=== PATIENT | male | born 1935 | race Caucasian/White ===

== ENCOUNTER 2018-12-06 16:38 | Inpatient (IN) ==
[2018-12-06] MEDS ORDERED: IOPAMIDOL 100 ML BOTTLE IV ONE (19:30)
--- NOTE | 2018-12-06 20:18 | Internal Med History&Physical ---
Medical - H&P: HPI Patient information: Note initiated : 12/06/18 at 8:15 pm Service Date, if different from initiated Date: [] Patient: Servando Glover 83 y/o M admitted on 12/06/18 for Osteomyelitis. Chief Complaint: [] History of present illness: Mr. Glover is a 83 year old M Mr. Glover is a 83 year old M Who presents the ED after being evaluated by interventional pain specialist Dr. Lin today. Patient fell about 5 weeks ago when appeared to have an L1 fracture. He follows with Dr. Lin and was going to be vertebroplasty, however he recently had a Citrobacter UTI and was treated with Cipro. At that time his white blood cell count was 11 after follow-up urinalysis after treatment and resolution follow-up labs showed a white blood cell count of 13.6. Additionally in the clinic today he had worsening back pain and appeared more ill. ESR and CRP were done which showed an elevated ESR. Given these findings there is concern for alternative underlying infection other than the UTI which is since been treated and resolved. Thus admission was requested. Case was discussed with Dr. Dowd. Per history patient did have a cardiac arrest in July was sent to [facility]. He has a AICD and pacemaker placed at that time. He also had a aortic valve replaced which is felt to be the culprit because of his cardiac arrest, from severe aortic stenosis He has a history of A. fib hypertension. Patient did have some fever chills when he had the UTI but has not had any stents. Denies any chest pain occasionally gets shortness of breath since his cardiac arrest but nothing new. No respiratory issues or upper respiratory tract infections. No diarrhea. He states his back pain is been getting worse over the past week and states is a dull pain nonradiating and is located in the center of his lower back. Review of Systems: Pertinent positives as above. Denies headache/fever/chills/nausea/vomiting /chest or abdominal pain/cough/diarrhea . Many 10 point review of system reviewed negative Medical - H&P: PMH Medical history: Past medical history: Atrial fibrillation on warfarin and beta-[place] Cardiac arrest in July with initial rhythm of V. fib sent to [facility] from [facility] and agree he received an AICD pacemaker loss aortic valve replacement for severe aortic stenosis CKD II Chronic low back pain Hypertension/hyperlipidemia Past surgical to: Lumbar laminectomy AICD/PPM Right total knee arthroplasty Aortic valve replacement recently at [facility] in July Family: Mother CHF Father colon cancer Social history: Denies tobacco Drinks alcohol rarely Embolus with a cane Lives at home with family Medical - H&P: Meds Allergies Allergy/AdvReac Type Severity Reaction Status Date / Time lisinopril AdvReac Verified 12/06/18 19:09 Medical - H&P: Exam - Constitutional Exam: General: Alert, Awake, No acute Distress Eyes/N/T: EOMI, PEERL, DMM Head/Neck: neck supple, normocephalic atraumatic CV: RRR, 2/6 SM Pulm: Clear b/l, no wheezing/rhonchi/rales Abd: soft, nontender, +BS x4 Back: Mild tenderness to palpation lumbar spine no overlying signs of infection Ext: no clubbing/cyanosis/edema Neuro: Alert, no focal deficits, moves all extremities, CN 2-12 grossly intact, symmetrical strength b/l upper/lower, sensations intact b/l upper/lower Skin: warm/dry Medical - H&P: A/P - Narrative A/P Narrative: A: *Acute on chronic low back pain: Since falling 5 weeks ago with initial imaging appears to show L1 compression fracture -concern for osteo of spine given Leukocytosis/elevated ESR & CRP & worsening back pain vs other source of infection *Leukocytosis/elevated ESR & CRP: Unknown source of infection but concern for lumbar spine *Afib: On warfarin and metoprolol *h/o cardiac arrest (v. fib) in july: AICD/PPM and aortic valve replacement with aortic stenosis felt to be the culprit cause of cardiac arrest *HTN/HLD: * * P: -IVF's -CT lumbar w/contrast -Pending CBC with manual differential, PCT, chemistry panel -pain control/muscle relaxers -Nile javed -BC pending - - -pt/ot -ppx: warfarin per pharm
[2018-12-06] MEDS ORDERED: BISACODYL 10 MG SUPP.RECT PR PRN (20:44)
[2018-12-06] MEDS ORDERED: PROMETHAZINE 25 MG/ML VIAL IV PRN (20:44)
[2018-12-06] MEDS ORDERED: MAGNESIUM HYDROXIDE 30 ML ORAL.SUSP PO PRN (20:44)
[2018-12-06] MEDS ORDERED: IPRATROPIUM/ALBUTEROL 3 ML AMPUL.NEB NEB PRN (20:44)
[2018-12-06] MEDS ORDERED: ACETAMINOPHEN 325 MG TABLET PO PRN (20:44)
[2018-12-06] MEDS ORDERED: 0.9 % SODIUM CHLORIDE 1,000 ML IV SCH (20:44)
[2018-12-06] MEDS ORDERED: ONDANSETRON 4 MG/2 ML VIAL IV PRN (20:44)
[2018-12-06 22:03] LABS: Hematocrit 39.1 % (41.0-55.0); Hemoglobin 13.3 g/dL (13.5-16.5); Mean Cell Volume 88.6 fL (80.0-100.0); Mean Corpuscular HGB Conc 33.9 g/dL (31.0-36.0); Mean Platelet Volume 9.2 fL (7.4-10.4); Platelet Count 174 K/mcL (140-440); RBC 4.42 M/mcL (4.50-5.90); Red Cell Distribution Width 13.2 % (11.5-14.5); WBC 13.6 K/mcL (4.5-11.0)
[2018-12-06 22:13] LABS: INR 2.2 (0.9-1.1); Prothrombin Time 24.1 sec (11.9-14.5)
[2018-12-06 22:22] LABS: ALT/SGPT 48 U/l (0-40); AST/SGOT 59 U/l (0-37); Albumin 3.3 gm/dL (3.2-5.2); Albumin/Globulin Ratio 0.8 (1.0-2.3); Alkaline Phosphatase 207 U/L (39-117); Bilirubin,Direct 0.3 mg/dL (0.0-0.3); Bilirubin,Total 1.1 mg/dL (0.0-1.0); Blood Urea Nitrogen 36 mg/dl (8-23); Calcium 9.3 mg/dl (8.6-10.4); Carbon Dioxide 22 mmol/L (22-30); Chloride 100 mmol/L (96-108); Glomerular Filtration Rate 56; Glucose 110 mg/dL (70-105); Lactate Dehydrogenase 485 U/L (94-250); Magnesium 2.2 mg/dL (1.6-2.5); Potassium 4.4 mmol/L (3.3-5.1); Sodium 138 mmol/L (133-145); Triglycerides 96 mg/dl (<150); Uric Acid 5.9 mg/dL (2.5-8.0)
[2018-12-06 22:33] LABS: Eosinophils % (Manual) 1 % (0-7); Lymphocytes % 9 % (15-49); Monocytes % (Manual) 3 % (1-12); Platelet Estimate NORMAL (NORMAL); RBC Morphology NORMAL (NORMAL); Segmented Neutrophils % 87 % (38-78)
[2018-12-06] MEDS: DOCUSATE SODIUM 100 MG CAPSULE PO SCH (23:05)
[2018-12-06] MEDS: 0.9 % SODIUM CHLORIDE 10 ML SYRINGE IV SCH (23:05)
[2018-12-07] MEDS: 0.9 % SODIUM CHLORIDE 10 ML SYRINGE IV SCH ×3 (04:23→22:08)
[2018-12-07 05:49] LABS: Basophils # (Auto) 0 K/mcL (0.0-0.3); Basophils % (Auto) 0.3 % (0.0-2.0); Eosinophils # (Auto) 0.1 K/mcL (0.0-0.7); Eosinophils % (Auto) 0.5 % (0.0-7.0); Granulocytes % (Auto) 84.6 % (38.0-78.0); Hematocrit 38.1 % (41.0-55.0); Hemoglobin 12.5 g/dL (13.5-16.5); Lymphocytes # (Auto) 0.8 K/mcL (1.5-4.8); Lymphocytes % (Auto) 7.2 % (15.5-49.0); Mean Cell Volume 90.8 fL (80.0-100.0); Mean Corpuscular HGB Conc 32.7 g/dL (31.0-36.0); Mean Platelet Volume 9.5 fL (7.4-10.4); Monocytes # (Auto) 0.8 K/mcL (0.1-0.9); Monocytes % (Auto) 7.4 % (1.0-12.0); Platelet Count 165 K/mcL (140-440); RBC 4.19 M/mcL (4.50-5.90); Red Cell Distribution Width 14.1 % (11.5-14.5)
[2018-12-07 06:02] LABS: INR 2.2 (0.9-1.1); Prothrombin Time 23.9 sec (11.9-14.5)
--- NOTE | 2018-12-07 06:18 | XRay Report ---
INDICATION: Dyspnea. Possible pneumonia. TECHNIQUE: AP chest x-ray,portable semiupright COMPARISON: None FINDINGS:Suboptimal evaluation due to difficulty in positioning this patient. Left transvenous pacemaker lead in appropriate position for right ventricle. No focal pulmonary parenchymal infiltrate or mass. Lungs are negative. There is mild cardiomegaly. No pulmonary edema or evidence for pulmonary congestion. IMPRESSION: 1. Probable mild cardiomegaly 2. No focal infiltrate. No evidence for congestive heart failure Interpreted and Authenticated by: Lenny Cervantes 12/07/18
--- NOTE | 2018-12-07 06:32 | Cat Scan Report ---
CLINICAL INFORMATION: Lower back pain TECHNIQUE: Axial images of the lower thoracic and lumbar spine. Sagittal and coronal reformatted images. Intravenous contrast material was administered COMPARISON: None. FINDINGS: Compression deformity of the T11 vertebral body. Previous vertebral body augmentation. Multiple compression deformities. L1 compression deformity appears acute. There is compression fracture of the inferior endplate. There is some sclerosis. There is only mild loss of height. There is no significant retropulsion. Compression deformities of the T12 and L4 vertebral bodies appear chronic. Axial images demonstrate spinal canal stenosis at L1 to, L2-3, L3-4. There is mild spinal canal stenosis at L4-5. Degenerative facet arthropathy at L3-4, L4-5, L5-S1. Sacrum is negative. No sacral fracture. No lytic lesion. No evidence for acute disc herniation although noncontrast enhanced CT scan is relatively insensitive for evaluation of the intervertebral discs. No definite epidural abnormality. No epidural enhancement. No paraspinal enhancing lesions. Examination was initially interpreted by [facility]. IMPRESSION: 1. Multiple compression deformities as above. L1 inferior endplate compression deformity appears acute. 2. Multilevel degenerative disc disease and facet arthropathy 3. Multilevel spinal canal stenosis Interpreted and Authenticated by: Lenny Cervantes 12/07/18
[2018-12-07 06:41] LABS: ALT/SGPT 47 U/l (0-40); AST/SGOT 54 U/l (0-37); Albumin 3.2 gm/dL (3.2-5.2); Albumin/Globulin Ratio 0.9 (1.0-2.3); Alkaline Phosphatase 181 U/L (39-117); Bilirubin,Direct 0.3 mg/dL (0.0-0.3); Blood Urea Nitrogen 32 mg/dl (8-23); C-Reactive Protein 16.1 mg/dl (0.0-0.8); Carbon Dioxide 22 mmol/L (22-30); Chloride 100 mmol/L (96-108); Globulin 3.6 gm/dL (2.2-3.7); Glomerular Filtration Rate 80; Glucose 86 mg/dL (70-105); Lactate Dehydrogenase 516 U/L (94-250); Magnesium 2.2 mg/dL (1.6-2.5); Potassium 4.3 mmol/L (3.3-5.1); Sodium 135 mmol/L (133-145); Triglycerides 91 mg/dl (<150); Uric Acid 5.4 mg/dL (2.5-8.0)
[2018-12-07] MEDS ORDERED: ALBUTEROL SULFATE 1 PUFF INHALER INH PRN (06:49)
[2018-12-07] MEDS ORDERED: SENNOSIDES 1 TABLET PO PRN (06:49)
[2018-12-07] MEDS ORDERED: MELATONIN 3 MG TABLET PO PRN (06:49)
--- NOTE | 2018-12-07 06:49 | Internal Med Progress Note ---
Medical - PN: Subj Patient information: Note initiated : 12/07/18 at 6:48 am Service Date, if different from initiated Date: [] Patient: Servando Glover a 83 y/o M admitted on 12/06/18 for Osteomyelitis. Chief Complaint: [] Interval history: Mr. Glover is a 83 year old M Who presents the ED after being evaluated by interventional pain specialist Dr. Lin today. Patient fell about 5 weeks ago when appeared to have an L1 fracture. He follows with Dr. Lin and was going to be vertebroplasty, however he recently had a Citrobacter UTI and was treated with Cipro. At that time his white blood cell count was 11 after follow-up urinalysis after treatment and resolution follow-up labs showed a white blood cell count of 13.6. Additionally in the clinic today he had worsening back pain and appeared more ill. ESR and CRP were done which showed an elevated ESR. Given these findings there is concern for alternative underlying infection other than the UTI which is since been treated and resolved. Thus admission was requested. Case was discussed with Dr. Dowd. Per history patient did have a cardiac arrest in July was sent to [facility]. He has a AICD and pacemaker placed at that time. He also had a aortic valve replaced which is felt to be the culprit because of his cardiac arrest, from severe aortic stenosis He has a history of A. fib hypertension. Patient did have some fever chills when he had the UTI but has not had any stents. Denies any chest pain occasionally gets shortness of breath since his cardiac arrest but nothing new. No respiratory issues or upper respiratory tract infections. No diarrhea. He states his back pain is been getting worse over the past week and states is a dull pain nonradiating and is located in the center of his lower back. 12/07 No overnight events. Patient slept well. Has continued back pain. Seems to be severe this morning. Review of Systems: denies headache/fever/chills/nausea/vomiting/chest or abdominal pain/cough/dyspnea/diarrhea. Otherwise see above. - Constitutional Vitals: Vital Signs Temp Pulse Resp BP Pulse Ox 98.1 F 70 20 127/75 94 12/07/18 06:43 12/07/18 04:18 12/07/18 06:43 12/07/18 06:43 12/07/18 06:43 Period Temp Pulse Resp BP Sys/Henry Pulse Ox Last 24 Hr 97.7 F-98.1 F 66-81 18-20 108-134/67-77 93-96 Intake and Output 12/06/18 12/07/18 12/07/18 21:59 05:59 13:59 Intake Total 60 Output Total 485 Balance -425 Weight 92.986 kg Intake & Output: Intake & Output 12/06/18 12/07/18 12/07/18 21:59 05:59 13:59 Intake Total 60 Output Total 485 Balance -425 Weight 92.986 kg Intake: Oral 60 Output: Void Amount 485 Other: Urine Appearance Clear Urine Color Bright Yellow Exam: General: Alert, Awake, mild physical distress from pain Eyes/N/T: EOMI, Head/Neck: neck supple, CV: RRR, 2/6 SM Pulm: Clear b/l, no wheezing/rhonchi/rales Abd: soft, nontender, +BS x4 Back: Mild tenderness to palpation lumbar spine no overlying signs of infection Ext: no clubbing/cyanosis/edema Neuro: Alert, no focal deficits, moves all extremities, Skin: warm/dry Medical - PN: Obj Da - Labs CBC & Chem 7: 12/07/18 03:55 12/07/18 03:55 Labs: Abnormal Lab Results 12/07/18 12/07/18 12/07/18 03:55 03:55 03:55 WBC RBC 4.19 L Hgb 12.5 L Hct 38.1 L Gran % 84.6 H Lymph % (Auto) 7.2 L Gran # 9.3 H Lymph # (Auto) 0.8 L Seg Neutrophils % Lymphocytes % PT 23.9 H INR 2.2 H BUN 32 H Glucose Total Bilirubin GGT 115 H AST 54 H ALT 47 H Alkaline Phosphatase 181 H Lactate Dehydrogenase 516 H C-Reactive Protein 16.1 H Globulin Albumin/Globulin Ratio 0.9 L 12/06/18 12/06/18 12/06/18 20:57 20:57 20:57 WBC 13.6 H RBC 4.42 L Hgb 13.3 L Hct 39.1 L Gran % Lymph % (Auto) Gran # Lymph # (Auto) Seg Neutrophils % 87 H Lymphocytes % 9 L PT 24.1 H INR 2.2 H BUN 36 H Glucose 110 H Total Bilirubin 1.1 H GGT 130 H AST 59 H ALT 48 H Alkaline Phosphatase 207 H Lactate Dehydrogenase 485 H C-Reactive Protein Globulin 4.0 H Albumin/Globulin Ratio 0.8 L Meds: Medications Acetaminophen (Tylenol) 650 mg PO Q6HP PRN PRN Reason: PAIN/FEVER > 101 Albuterol/Ipratropium (Duoneb) 3 ml NEB Q4HRT PRN PRN Reason: Bronchospasm Bisacodyl (Dulcolax) 10 mg [place] Q2-3DAYS PRN PRN Reason: Constipation Docusate Sodium (Colace) 100 mg PO BID [facility] Last Admin: 12/06/18 23:05 Dose: Not Given Documented by: Sodium Chloride (Sodium Chloride 0.9%) 1,000 mls @ 80 mls/hr IV .[id number] [facility] Stop: 12/07/18 09:13 Last Admin: 12/06/18 23:47 Dose: 80 mls/hr Documented by: Magnesium Hydroxide (Milk Of Magnesia) 30 ml PO DAILYP PRN PRN Reason: Constipation Methocarbamol (Robaxin) 750 mg IV Q6HP PRN PRN Reason: Muscle Spasm Morphine Sulfate (Morphine) 1 - 4 mg IV Q3HP PRN PRN Reason: PAIN LEVEL > 6 Ondansetron HCl (Zofran) 4 mg IV Q6HP PRN PRN Reason: Nausea And Vomiting Pneumococcal Polyvalent Vaccine (Pneumovax 23) 0.5 ml IM .ONCE ONE Stop: 12/08/18 10:01 Promethazine HCl (Phenergan) 12.5 mg IV Q6HP PRN PRN Reason: Nausea And Vomiting Sodium Chloride (Saline Flush) 10 ml IV Q8 [facility] Last Admin: 12/07/18 04:23 Dose: Not Given Documented by: Medical - PN: A/P - Time Spent With Patient Total time spent is greater than 50% in coordination of care (as documented) at patient's floor/unit and/or counseling patient: - Narrative A/P Narrative: A: *Acute on chronic low back pain: Since falling 5 weeks ago with initial imaging appears to show L1 compression fracture -concern for osteo of spine given Leukocytosis/elevated ESR & CRP & worsening back pain vs other source of infection *Leukocytosis/elevated ESR (101) & CRP (17): Unknown source of infection but concern for lumbar spine -leukocytosis resolved w/o intervention. PCT elevated *Afib: On warfarin and metoprolol *h/o cardiac arrest (v. fib) in july: AICD/PPM and aortic valve replacement with aortic stenosis felt to be the culprit cause of cardiac arrest *HTN/HLD: *GERD P: -IVF's -CT lumbar w/contrast -pain control/muscle relaxers -Nile consulted -BC pending -trend PCT -cont home Amio/BB, cont home torsemide, cont home statin/?plavix -pt/ot -ppx: warfarin per pharm/home H2
[2018-12-07] MEDS ORDERED: 0.9 % SODIUM CHLORIDE 1,500 ML IV SCH (06:54)
[2018-12-07 08:49] LABS: Band Neutrophils % 1 % (0-10); Eosinophils % (Manual) 1 % (0-7); Lymphocytes % 11 % (15-49); Monocytes % (Manual) 8 % (1-12); Platelet Estimate NORMAL (NORMAL); RBC Morphology NORMAL (NORMAL); Segmented Neutrophils % 79 % (38-78)
[2018-12-07] MEDS ORDERED: COUMADIN PO SCH (09:00)
[2018-12-07] MEDS: METHOCARBAMOL 1,000 MG/10 ML VIAL IV PRN ×2 (09:25→15:44)
[2018-12-07] MEDS: HYDROcodone/APAP 10/325MG TABLET PO PRN ×2 (09:25→18:11)
[2018-12-07] MEDS: METOPROLOL TARTRATE 25 MG TABLET PO SCH (09:26)
[2018-12-07] MEDS: FAMOTIDINE 20 MG TABLET PO SCH ×2 (09:26→21:33)
[2018-12-07] MEDS: DOCUSATE SODIUM 100 MG CAPSULE PO SCH ×2 (09:26→21:33)
[2018-12-07] MEDS: TORSEMIDE 10 MG TABLET PO SCH (09:26)
[2018-12-07] MEDS: CLOPIDOGREL 75 MG TABLET PO SCH (09:26)
[2018-12-07] MEDS: MAGNESIUM OXIDE 400 MG TABLET PO SCH ×2 (09:26→21:33)
[2018-12-07] MEDS: TIMOLOL 0.5% OPHTH DROPS BOTTLE 5ML OU SCH (09:27)
[2018-12-07] MEDS ORDERED: WARFARIN 4 MG TABLET PO ONE (14:00)
--- NOTE | 2018-12-07 14:11 | Cat Scan Report ---
CLINICAL INFORMATION: Left lower quadrant abdominal pain COMPARISON: Lumbar spine CT scan dated 12/06/2018 TECHNIQUE: Axial images were obtained through the abdomen and pelvis. Sagittally and coronally reformatted images. Intravenous contrast material was not administered. Oral contrast material was given FINDINGS: Lung bases are negative. No parenchymal infiltrate or mass. There is no pleural fluid. No pericardial fluid. Patient has a transvenous pacemaker. There is a prosthetic aortic valve. There is mild cardiomegaly. Liver is negative to the limits of noncontrast enhanced examination. Liver contour is smooth. Gallbladder present. No calcified gallstones. No dilated bile ducts. Spleen is negative. No splenic enlargement. Adrenal glands are negative. Pancreas is negative. No solid or cystic mass. No peripancreatic abnormality. Kidneys are negative. No detectable mass. There is no hydronephrosis. There are no renal calculi. No hydroureter. No bladder stone. There is contrast material within the urinary bladder from previous contrast enhanced lumbar CT scan No significant colonic diverticulosis. No evidence for diverticulitis. No detectable colonic mass. There is no evidence for appendicitis. Small bowel is negative. No mechanical small bowel obstruction. There is no pneumoperitoneum. No biliary or portal venous gas. There is no pneumatosis. Patient has undergone previous T11 vertebroplasty or kyphoplasty. There are multiple compression deformities. L1 inferior endplate compression fracture may be acute. There is no paraspinal soft tissue mass. There is multilevel degenerative disc disease and facet arthropathy with multiple spinal canal stenoses. Epidural or paraspinal abscess is not identified. This calcifications abdominal aorta. No abdominal aortic aneurysm. IMPRESSION: 1. No diverticulitis. No intra-abdominal abscess. 2. No acute intra-abdominal or intrapelvic abnormality 3. Multiple compression deformities. L1 inferior endplate compression deformity is probably acute The exam was performed using radiation dose optimization techniques including, but not limited to, automated exposure control, adjustment of the mA and/or kV according to patient size and use of iterative reconstruction technique. Interpreted and Authenticated by: Lenny Cervantes 12/07/18
[2018-12-07] MEDS ORDERED: VANCOMYCIN PER PHARMACY IV SCH (15:19)
[2018-12-07] MEDS ORDERED: 0.9 % SODIUM CHLORIDE 1,000 ML IV SCH (15:30)
[2018-12-07] MEDS ORDERED: ceFAZolin 2 GM in DEXTROSE 5% IN WATER 50 ML IV SCH (15:30)
[2018-12-07] MEDS: VANCOMYCIN 1,500 MG in 0.9 % SODIUM CHLORIDE 500 ML IV SCH (15:39)
[2018-12-07] MEDS ORDERED: ceFAZolin 1 GM VIAL IV SCH (16:00)
--- NOTE | 2018-12-07 18:19 | Infectious Disease Consult ---
History of Present Illness Patient information: Note initiated : 12/07/18 at 5:56 pm Service Date, if different from initiated Date: [] Patient: Servando Glover 83 y/o M admitted on 12/07/18 for Osteomyelitis. Chief Complaint: [] Requesting Physician: Luis Randolph History of present illness: 83 year old man with PMHx of: - Atrial fibrillation: on warfarin and beta-[place] - s/p AICD plaacement for Cardiac arrest in July 2018 - s/p AVR for severe aortic stenosis - CKD II - Chronic low back pain s/p lumbar laminectomy - right total knee arthroplasty Pt was referred to [facility] on 12/06 after he appeared ill at follow up appt with Dr Clark (at [facility]). Of note, pt fell about 5 weeks ago leading to a L1 fracture. He was subseq evaluated by Dr Clark for vertebroplasty but found to have positive urine Cx preop for Citrobacter which was treated with oral Cipro for [address] Clark did a test of cure culture and retreated him with another course of antibiotics. Yesterday, his labs also suggested WBC of 13k, ESR of 87 both of which increased suspicion for a systemic infection other than UTI. Pt underwent blood Cx at admission. He was afebrile during the stay. At time of my visit today, he was slightly confused and had difficulty replying to questions. He did not endorse any fever, chills, urinary symptoms (dysuria, freq, urgency, blood in urine, flank pain). He c/o severe back pain in mid and lower back. Denied any n/v/diarrhea. His blood Cx today came back +ve for Streptococcus spp. in 2/2 sets with ID and sensi pending. He was started on IV Vanc and IV Cefazolin initially. Review of Systems All systems PM: reviewed and no additional remarkable complaints except as stated Past History Past family history: not pertinent to current presentation Past social history: lives with his in [place] Medications and Allergies Home Medications Medication Instructions Recorded Confirmed Type Acetaminophen 650 mg PO Q4HP PRN 12/06/18 12/06/18 History Amiodarone HCl 200 mg PO HS 12/06/18 12/06/18 History Atorvastatin Calcium 40 mg PO HS 12/06/18 12/06/18 History Clopidogrel Bisulfate 75 mg PO QDAY 12/06/18 12/06/18 History Coumadin 4 mg PO DAILY 12/06/18 12/06/18 History Famotidine 20 mg PO BID 12/06/18 12/06/18 History HYDROcodone/APAP 10/325MG 1 tab PO Q8HP PRN 12/06/18 12/06/18 History Ipratropium/Albuterol 1 vial NEB TIDP PRN 12/06/18 12/06/18 History Latanoprost 0.005% Eye Drop 1 drp BOTH EYES HS 12/06/18 12/06/18 History Magnesium Chloride 1 tab PO BID 12/06/18 12/06/18 History Melatonin 3 mg PO HSP PRN 12/06/18 12/06/18 History Metoprolol Tartrate 6.25 mg PO DAILY 12/06/18 12/06/18 History Ondansetron 4 mg PO Q8HP PRN 12/06/18 12/06/18 History Proair Hfa 1 inh INH Q6HP PRN 12/06/18 12/06/18 History Senna 1 tab PO BIDP PRN 12/06/18 12/06/18 History Timolol 0.5% Ophth Drops 1 drp BOTH EYES QDAY 12/06/18 12/06/18 History Torsemide 5 mg PO DAILY 12/06/18 12/06/18 History Vitamin D3 2,000 unit PO BID 12/06/18 12/06/18 History Allergies Allergy/AdvReac Type Severity Reaction Status Date / Time lisinopril AdvReac Verified 12/06/18 19:09 Physical Examination Vital signs: Temp Pulse Resp BP Pulse Ox 36.3 C 80 18 107/57 94 12/07/18 15:37 12/07/18 15:37 12/07/18 15:37 12/07/18 15:37 12/07/18 15:37 General appearance: no acute distress Eyes pulmonary: nonicteric ENT: oropharynx moist Effort: normal Auscultation: bilateral: diminished breath sounds (at bases with occasional crackles) Cardiovascular: other (s1 soft s2 normal, has 2/6 ESM at Rt 2nd ICS) Gastrointestinal: normoactive bowel sounds, tender (in left lower quadrant, no hepatomegaly) Extremities: no edema Gait: other (has point tenderness over lower thoracic and upper lumbar vertebra, no flank tenderness) other (SLRT positive on Rt LLE at 20 degrees, positive at LLE at 30 degrees) Results - Laboratory Findings CBC and BMP: 12/07/18 03:55 12/07/18 03:55 PT/INR, D-dimer PT 23.9 sec (11.9-14.5) H 12/07/18 03:55 INR 2.2 (0.9-1.1) H 12/07/18 03:55 Abnormal lab findings: Abnormal Labs 12/06/18 12/06/18 12/06/18 20:57 20:57 20:57 WBC 13.6 H RBC 4.42 L Hgb 13.3 L Hct 39.1 L Gran % Lymph % (Auto) Gran # Lymph # (Auto) Seg Neutrophils % 87 H Lymphocytes % 9 L ESR PT 24.1 H INR 2.2 H BUN 36 H Glucose 110 H Total Bilirubin 1.1 H GGT 130 H AST 59 H ALT 48 H Alkaline Phosphatase 207 H Lactate Dehydrogenase 485 H C-Reactive Protein Globulin 4.0 H Albumin/Globulin Ratio 0.8 L 12/07/18 12/07/18 12/07/18 03:55 03:55 03:55 WBC RBC 4.19 L Hgb 12.5 L Hct 38.1 L Gran % 84.6 H Lymph % (Auto) 7.2 L Gran # 9.3 H Lymph # (Auto) 0.8 L Seg Neutrophils % Lymphocytes % ESR PT 23.9 H INR 2.2 H BUN 32 H Glucose Total Bilirubin GGT 115 H AST 54 H ALT 47 H Alkaline Phosphatase 181 H Lactate Dehydrogenase 516 H C-Reactive Protein 16.1 H Globulin Albumin/Globulin Ratio 0.9 L 12/07/18 12/07/18 12/07/18 07:13 12:37 12:37 WBC RBC Hgb Hct Gran % Lymph % (Auto) Gran # Lymph # (Auto) Seg Neutrophils % 79 H Lymphocytes % 11 L ESR 87 H PT INR BUN Glucose Total Bilirubin GGT AST ALT Alkaline Phosphatase Lactate Dehydrogenase C-Reactive Protein 15.0 H Globulin Albumin/Globulin Ratio Microbiology: Microbiology 12/06/18 20:57 Blood Blood Culture - Preliminary Gram positive cocci 12/06/18 21:04 Blood Blood Culture - Preliminary Assessment and Plan - Narrative A/P Narrative: A: 1. Streptococcus spp. bacteremia: 2/2 sets from 12/06 positive - ID and sensi pending - high risk for seeding prosthetic intravascular devices: AICD, prosthetic aortic valve and other non vascular prosthetic devices: Rt TKA - currently meets 1 major and 1 minor criteria of Henderson's modified criteria ----> Possible IE 2. Chronic back pain with recent vertebral fractures - confirmed on CT T/L spine with contrast 3. Fraility: - high risk for aspiration Recommendations: - Start IV Vanc (per pharmacy assisted dosing) with target trough 10-20 - Start IV Ceftriaxone 2 gm q24 hrs - Pt will need SILVANA to r/o any aortic valve involvement, given his Hx of aortic valve replacement. - repeat blood Cx tomorrow - keep HOB end elevated at >30 degrees. Consider Speech eval. will follow Choco Dowd MD Infectious diseases
[2018-12-07 18:28] LABS: Appearance,Urine CLEAR; Bilirubin,Urine NEG (NEG); Color,Urine YELLOW; Culture Indicated,Urine NO; Glucose,Urine (UA) NEGATIVE (NEG); Ketones,Urine NEG (NEG); Leukocyte Esterase,Urine NEG /uL (NEG); Nitrate,Urine NEG (NEG); Protein,Urine NEG (NEG); Specific Gravity,Urine 1.029 (1.000-1.035); Urine Blood NEG mg/dL (<0.03); Urobilinogen,Urine NEG (NEG)
--- NOTE | 2018-12-07 20:23 | Transfer Summary ---
Transfer Discharge Sum: Prov Patient information: Note initiated : 12/07/18 at 8:22 pm Service Date, if different from initiated Date: [] Patient: Servando Glover 83 y/o M admitted on 12/07/18 for Osteomyelitis. Chief Complaint: [] Date of admission: 12/07/18 15:15 Discharge Date: 12/08/18 Primary care physician: Dasia Cuello Consults: 12/06/18 20:44 Consult to Physician [CONS] Routine Comment: Consulting Provider: Choco Dowd Reason For Exam: Physician to Consult Transfer Discharge Sum: Diag - Discharge Diagnosis (1) Bacteremia Status: Acute Transfer Discharge Sum: Med - Medications Active and Home Medications: Home Medications Acetaminophen 650 mg PO Q4HP PRN 12/06/18 [History Confirmed 12/06/18] Amiodarone HCl 200 mg PO HS 12/06/18 [History Confirmed 12/06/18] Atorvastatin Calcium 40 mg PO HS 12/06/18 [History Confirmed 12/06/18] Clopidogrel Bisulfate 75 mg PO QDAY 12/06/18 [History Confirmed 12/06/18] Coumadin 4 mg PO DAILY 12/06/18 [History Confirmed 12/06/18] Famotidine 20 mg PO BID 12/06/18 [History Confirmed 12/06/18] HYDROcodone/APAP 10/325MG 1 tab PO Q8HP PRN 12/06/18 [History Confirmed 12/06/18] Ipratropium/Albuterol 1 vial NEB TIDP PRN 12/06/18 [History Confirmed 12/06/18] Latanoprost 0.005% Eye Drop 1 drp BOTH EYES HS 12/06/18 [History Confirmed 12/06/18] Magnesium Chloride 1 tab PO BID 12/06/18 [History Confirmed 12/06/18] Melatonin 3 mg PO HSP PRN 12/06/18 [History Confirmed 12/06/18] Metoprolol Tartrate 6.25 mg PO DAILY 12/06/18 [History Confirmed 12/06/18] Ondansetron 4 mg PO Q8HP PRN 12/06/18 [History Confirmed 12/06/18] Proair Hfa 1 inh INH Q6HP PRN 12/06/18 [History Confirmed 12/06/18] Senna 1 tab PO BIDP PRN 12/06/18 [History Confirmed 12/06/18] Timolol 0.5% Ophth Drops 1 drp BOTH EYES QDAY 12/06/18 [History Confirmed 12/06/18] Torsemide 5 mg PO DAILY 12/06/18 [History Confirmed 12/06/18] Vitamin D3 2,000 unit PO BID 12/06/18 [History Confirmed 12/06/18] Active Medications Acetaminophen (Tylenol) 650 mg PO Q6HP PRN PRN Reason: PAIN/FEVER > 101 Hydrocodone Bitart/Acetaminophen ([place] 10/325mg) 1 tab PO Q8HP PRN PRN Reason: Pain Last Admin: 12/07/18 18:11 Dose: 1 tab Documented by: Albuterol Sulfate (Ventolin) 1 puff INH Q6HP PRN PRN Reason: Asthma Albuterol/Ipratropium (Duoneb) 3 ml NEB Q4HRT PRN PRN Reason: Bronchospasm Amiodarone HCl (Cordarone) 200 mg PO HS [facility] Atorvastatin Calcium (Lipitor) 40 mg PO HS [facility] Bisacodyl (Dulcolax) 10 mg NE Q2-3DAYS PRN PRN Reason: Constipation Clopidogrel Bisulfate (Plavix) 75 mg PO DAILY [facility] Last Admin: 12/07/18 09:26 Dose: 75 mg Documented by: Docusate Sodium (Colace) 100 mg PO BID [facility] Last Admin: 12/07/18 09:26 Dose: 100 mg Documented by: Famotidine (Pepcid) 20 mg PO BID [facility] Last Admin: 12/07/18 09:26 Dose: 20 mg Documented by: Sodium Chloride (Sodium Chloride 0.9%) 1,000 mls @ 84 mls/hr IV .[id number] [facility] Vancomycin HCl 1,500 mg/ (Sodium Chloride) 500 mls @ 333.3 mls/hr IV Q24H [facility] Last Admin: 12/07/18 15:39 Dose: 333.3 mls/hr Documented by: Ceftriaxone Sodium 2 gm/ (Dextrose) 50 mls @ 100 mls/hr IV Q24H [facility]; Protocol Latanoprost (Xalatan Ophth Drops) 1 gtt OU HS [facility] Magnesium Hydroxide (Milk Of Magnesia) 30 ml PO DAILYP PRN PRN Reason: Constipation Magnesium Oxide (Magnesium Oxide) 400 mg PO BID [facility] Last Admin: 12/07/18 09:26 Dose: 400 mg Documented by: Melatonin (Melatonin 3mg Tablet) 3 mg PO HSP PRN PRN Reason: Insomnia Methocarbamol (Robaxin) 750 mg IV Q6HP PRN PRN Reason: Muscle Spasm Last Admin: 12/07/18 15:44 Dose: 750 mg Documented by: Metoprolol Tartrate (Lopressor) 6.25 mg PO DAILY [facility] Last Admin: 12/07/18 09:26 Dose: 6.25 mg Documented by: Morphine Sulfate (Morphine) 1 - 4 mg IV Q3HP PRN PRN Reason: PAIN LEVEL > 6 Ondansetron HCl (Zofran) 4 mg IV Q6HP PRN PRN Reason: Nausea And Vomiting Pneumococcal Polyvalent Vaccine (Pneumovax 23) 0.5 ml IM .ONCE ONE Stop: 12/08/18 10:01 Promethazine HCl (Phenergan) 12.5 mg IV Q6HP PRN PRN Reason: Nausea And Vomiting Senna (Senokot) 1 tab PO BIDP PRN PRN Reason: Constipation Sodium Chloride (Saline Flush) 10 ml IV Q8 [facility] Last Admin: 12/07/18 14:00 Dose: Not Given Documented by: Timolol Maleate (Timoptic 0.5% Ophth Drops) 1 gtt OU DAILY [facility] Last Admin: 12/07/18 09:27 Dose: Not Given Documented by: Torsemide (Demadex) 5 mg PO DAILY [facility] Last Admin: 12/07/18 09:26 Dose: 5 mg Documented by: Vancomycin HCl (Vancomycin Per Pharmacy) 1 order IV UD [facility]; Protocol Warfarin Sodium (Coumadin Per Pharmacy) 1 order PO UD [facility] Transfer Discharge Sum: Hosp Hospital course: Mr. Glover is a 83 year old M Mr. Glover is a 83 year old M Who presents the ED after being evaluated by interventional pain specialist Dr. Lin today. Patient fell about 5 weeks ago when appeared to have an L1 fracture. He follows with Dr. Lin and was going to be vertebroplasty, however he recently had a Citrobacter UTI and was treated with Cipro. At that time his white blood cell count was 11 after follow-up urinalysis after treatment and resolution follow-up labs showed a white blood cell count of 13.6. Additionally in the clinic today he had worsening back pain and appeared more ill. ESR and CRP were done which showed an elevated ESR. Given these findings there is concern for alternative underlying infection other than the UTI which is since been treated and resolved. Thus admission was requested. Case was discussed with Dr. Dowd. Per history patient did have a cardiac arrest in July was sent to [place]. He has a AICD and pacemaker placed at that time. He also had a aortic valve replaced which is felt to be the culprit because of his cardiac arrest, from severe aortic stenosis He has a history of A. fib hypertension. Patient did have some fever chills when he had the UTI but has not had any stents. Denies any chest pain occasionally gets shortness of breath since his cardiac arrest but nothing new. No respiratory issues or upper respiratory tract infections. No diarrhea. He states his back pain is been getting worse over the past week and states is a dull pain nonradiating and is located in the center of his lower back. 12/07 No overnight events. Patient slept well. Has continued back pain. Seems to be severe this morning. 12/08 Continues to complain of back pain. Quite forgetful per family. Likely underlying dementia. No overnight events. Discussed the case with Dr. Waller at [facility] who graciously agrees to accept the patient. A: *Acute on chronic low back pain: 2/2 lumbar compression Fx's -CT spine w/contrast no evidence osteomyelitis *Bactermia (Streptococcus): 09/14 bottles *Afib: On warfarin and metoprolol *h/o cardiac arrest (v. fib) in july: AICD/PPM and aortic valve replacement with aortic stenosis felt to be the culprit cause of cardiac arrest -at [facility] *HTN/HLD: *GERD P: -vanco/rocephin -[place] following -will need SILVANA given prosthetic aortic valve. 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 Call out to [facility] > bed available. Call out to [facility]. -pain control/muscle relaxers -serial BC pending -trend PCT -cont home Amio/BB, cont home torsemide, cont home statin/?plavix -pt/ot -ppx: warfarin per pharm/home H2 - Time Spent with Patient Total time spent providing and/or coordinating transfer services: Greater than 30 minutes Transfer Discharge Sum: Exam - Constitutional Vitals: Vital Signs Temp Pulse Resp BP Pulse Ox 12/07/18 19:39 97.8 F 78 20 129/77 96 12/07/18 15:37 97.3 F 80 18 107/57 94 12/07/18 12:00 98.4 F 75 20 123/73 94 12/07/18 07:44 79 20 94 12/07/18 06:43 98.1 F 20 127/75 94 12/07/18 04:18 98.1 F 70 18 125/75 93 12/06/18 23:13 97.7 F 66 20 134/77 96 Intake and Output 12/07/18 12/07/18 12/07/18 05:59 13:59 21:59 Intake Total 60 1000 200 Output Total 485 1 600 Balance -425 999 -400 Intake: IV 1000 Oral 60 200 Output: Urine Catheter Amount 200 Void Amount 485 400 # of times incontinent of urine 1 Other: Meal Lunch Percent of Meal Consumed 75% Feeding Ability Assist with Tray Set Up Urine Appearance Clear Clear Urine Color Bright Yellow Dark Yellow Urine Odor Normal Stool Size Moderate Stool Color Brown Stool Consistency Formed # Voids 1 # Bowel Movements 1 Weight 85.729 kg Patient Weight 12/08/18 05:59 Weight 85.729 kg Transfer Discharge Sum: Data Procedures and tests throughout hospitalization: Pending Orders 12/06/18 20:08 Resuscitation Status Routine 12/06/18 20:44 Ambulate-Progressive TID Communication order NOW Condition Routine IV Insertion/Management QSHIFT Intake and Output qshiftio Notify Provider .routine Up to chair PRN Vital Signs Q4 Weight Monitoring QHS Consult to Physician [CONS] Routine Acetaminophen [Tylenol] 650 mg PO Q6HP PRN Bisacodyl [Dulcolax] 10 mg NE Q2-3DAYS PRN Ipratropium/Albuterol [Duoneb] 3 ml NEB Q4HRT PRN Magnesium Hydroxide [Milk of Magnesia] 30 ml PO DAILYP PRN Methocarbamol [Robaxin] 750 mg IV Q6HP PRN Ondansetron [Zofran] 4 mg IV Q6HP PRN Promethazine [Phenergan] 12.5 mg IV Q6HP PRN morphine 1 - [address] Q[address] to Adjust Diet/Supplements as Needed Routine Physical Therapy Eval & Tx QD-BID Nebulizer management .Routine 12/06/18 20:57 Blood Culture Stat 12/06/18 21:00 Docusate Sodium [Colace] 100 mg PO BID 12/06/18 22:00 0.9 % Sodium Chloride [Saline Flush] 10 ml IV Q8 12/07/18 06:49 Albuterol Sulfate [Ventolin] 1 puff INH Q6HP PRN HYDROcodone/APAP 10/325MG [[place] 10/325Mg] 1 tab PO Q8HP PRN Melatonin [Melatonin 3Mg Tablet] 3 mg PO HSP PRN Sennosides [Senokot] 1 tab PO BIDP PRN 12/07/18 09:00 Clopidogrel [Plavix] 75 mg PO DAILY Famotidine [Pepcid] 20 mg PO BID Magnesium Oxide 400 mg PO BID Metoprolol Tartrate [Lopressor] 6.25 mg PO DAILY Timolol 0.5% Ophth Drops [Timoptic 0.5% Ophth Drops] 1 gtt OU DAILY Torsemide [Demadex] 5 mg PO DAILY Warfarin Per Pharmacy [Coumadin Per Pharmacy] 1 order PO UD 12/07/18 14:11 Cardiac Diet 12/07/18 15:15 Admit as Inpatient Routine 12/07/18 15:19 Vancomycin Per Pharmacy 1 order IV UD 12/07/18 15:30 0.9 % Sodium Chloride [Sodium Chloride 0.9%] 1,000 ml IV 84 mls/hr Vancomycin 1,500 mg 0.9 % Sodium Chloride [Sodium Chloride 0.9%] 500 ml IV Q24H 12/07/18 19:15 cefTRIAXone [Rocephin] 2 gm Dextrose 5% in Water 50 ml IV Q24H 12/07/18 21:00 Amiodarone HCl [Cordarone] 200 mg PO HS Atorvastatin [Lipitor] 40 mg PO HS Latanoprost Ophth Drops [Xalatan Ophth Drops] 1 gtt OU HS 12/08/18 04:00 Blood Culture Routine CRP [C-Reactive Protein] Routine Complete Blood Count Routine INR [Prothrombin Time INR] DAILY Inpatient Panel Routine Procalcitonin Routine 12/08/18 10:00 Pneumococcal 23-Chitra P-Sac Vac [Pneumovax 23] 0.5 ml IM .ONCE ONE 12/09/18 04:00 INR [Prothrombin Time INR] DAILY 12/09/18 09:00 Vancomycin,Trough Stat 12/10/18 04:00 INR [Prothrombin Time INR] DAILY 12/11/18 04:00 INR [Prothrombin Time INR] DAILY 12/12/18 04:00 INR [Prothrombin Time INR] DAILY 12/13/18 04:00 INR [Prothrombin Time INR] DAILY 12/14/18 04:00 INR [Prothrombin Time INR] DAILY Transfer Discharge Sum: A/P - Problem Maintenance (1) Bacteremia Status: Acute - Plan Overall status at transfer: patient is not back to baseline [facility]
[2018-12-07] MEDS ORDERED: AMIODARONE HCL 200 MG TABLET PO SCH (21:00)
[2018-12-07] MEDS ORDERED: ATORVASTATIN 20 MG TABLET PO SCH (21:00)
[2018-12-07] MEDS ORDERED: LATANOPROST OPHTH DROPS 2.5ML BOTTLE OU SCH (21:00)
[2018-12-07] MEDS: cefTRIAXone 2 GM in DEXTROSE 5% IN WATER 50 ML IV SCH (22:04)
[2018-12-08] MEDS: HYDROcodone/APAP 10/325MG TABLET PO PRN ×2 (03:07→10:32)
[2018-12-08] MEDS: 0.9 % SODIUM CHLORIDE 10 ML SYRINGE IV SCH (04:43)
[2018-12-08 05:49] LABS: INR 2.8 (0.9-1.1); Prothrombin Time 28.9 sec (11.9-14.5)
[2018-12-08 06:56] LABS: Basophils # (Auto) 0 K/mcL (0.0-0.3); Basophils % (Auto) 0.2 % (0.0-2.0); Eosinophils # (Auto) 0.1 K/mcL (0.0-0.7); Eosinophils % (Auto) 0.9 % (0.0-7.0); Granulocytes % (Auto) 79.6 % (38.0-78.0); Hematocrit 34.2 % (41.0-55.0); Hemoglobin 11.2 g/dL (13.5-16.5); Lymphocytes # (Auto) 0.8 K/mcL (1.5-4.8); Lymphocytes % (Auto) 9.2 % (15.5-49.0); Mean Cell Volume 91.3 fL (80.0-100.0); Mean Corpuscular HGB Conc 32.8 g/dL (31.0-36.0); Mean Platelet Volume 9.4 fL (7.4-10.4); Monocytes # (Auto) 0.8 K/mcL (0.1-0.9); Monocytes % (Auto) 10.1 % (1.0-12.0); Platelet Count 164 K/mcL (140-440); RBC 3.75 M/mcL (4.50-5.90); Red Cell Distribution Width 14.3 % (11.5-14.5); WBC 8.4 K/mcL (4.5-11.0)
[2018-12-08 07:09] LABS: ALT/SGPT 35 U/l (0-40); AST/SGOT 43 U/l (0-37); Albumin 2.7 gm/dL (3.2-5.2); Albumin/Globulin Ratio 0.8 (1.0-2.3); Alkaline Phosphatase 161 U/L (39-117); Bilirubin,Direct 0.2 mg/dL (0.0-0.3); Bilirubin,Total 0.7 mg/dL (0.0-1.0); Blood Urea Nitrogen 24 mg/dl (8-23); Calcium 8.6 mg/dl (8.6-10.4); Carbon Dioxide 22 mmol/L (22-30); Chloride 103 mmol/L (96-108); Globulin 3.5 gm/dL (2.2-3.7); Glomerular Filtration Rate 89; Glucose 90 mg/dL (70-105); Lactate Dehydrogenase 447 U/L (94-250); Magnesium 2.1 mg/dL (1.6-2.5); Sodium 138 mmol/L (133-145); Triglycerides 82 mg/dl (<150); Uric Acid 4.4 mg/dL (2.5-8.0)
[2018-12-08] MEDS ORDERED: LIDOCAINE PATCH TOPICAL ONE (08:12)
[2018-12-08] MEDS: METOPROLOL TARTRATE 25 MG TABLET PO SCH (08:13)
[2018-12-08] MEDS: FAMOTIDINE 20 MG TABLET PO SCH (08:13)
[2018-12-08] MEDS: TORSEMIDE 10 MG TABLET PO SCH (08:13)
[2018-12-08] MEDS: MAGNESIUM OXIDE 400 MG TABLET PO SCH (08:13)
[2018-12-08] MEDS: DOCUSATE SODIUM 100 MG CAPSULE PO SCH (08:13)
[2018-12-08] MEDS: CLOPIDOGREL 75 MG TABLET PO SCH (08:13)
[2018-12-08] MEDS ORDERED: cefTRIAXone 2 GM VIAL ONE (08:46)
[2018-12-08] MEDS: cefTRIAXone 2 GM in DEXTROSE 5% IN WATER 50 ML IV SCH (08:53)
--- NOTE | 2018-12-08 09:00 | Internal Med Progress Note ---
Medical - PN: Subj Patient information: Note initiated : 12/08/18 at 8:57 am Service Date, if different from initiated Date: [] Patient: Servando Glover a 83 y/o M admitted on 12/07/18 for Osteomyelitis. Chief Complaint: [] Interval history: Mr. Glover is a 83 year old M Who presents the ED after being evaluated by interventional pain specialist Dr. Lin today. Patient fell about 5 weeks ago when appeared to have an L1 fracture. He follows with Dr. Lin and was going to be vertebroplasty, however he recently had a Citrobacter UTI and was treated with Cipro. At that time his white blood cell count was 11 after follow-up urinalysis after treatment and resolution follow-up labs showed a white blood cell count of 13.6. Additionally in the clinic today he had worsening back pain and appeared more ill. ESR and CRP were done which showed an elevated ESR. Given these findings there is concern for alternative underlying infection other than the UTI which is since been treated and resolved. Thus admission was requested. Case was discussed with Dr. Dowd. Per history patient did have a cardiac arrest in July was sent to [place]. He has a AICD and pacemaker placed at that time. He also had a aortic valve replaced which is felt to be the culprit because of his cardiac arrest, from severe aortic stenosis He has a history of A. fib hypertension. Patient did have some fever chills when he had the UTI but has not had any stents. Denies any chest pain occasionally gets shortness of breath since his cardiac arrest but nothing new. No respiratory issues or upper respiratory tract infections. No diarrhea. He states his back pain is been getting worse over the past week and states is a dull pain nonradiating and is located in the center of his lower back. 12/07 No overnight events. Patient slept well. Has continued back pain. Seems to be severe this morning. 12/08 Continues to complain of back pain. Quite forgetful per family. Likely underlying dementia. Events. Review of Systems: denies headache/fever/chills/nausea/vomiting/chest or abdominal pain/cough/dyspnea/diarrhea. Otherwise see above. - Constitutional Vitals: Vital Signs Temp Pulse Resp BP Pulse Ox 97.5 F 72 20 124/81 95 12/08/18 06:49 12/08/18 07:54 12/08/18 07:54 12/08/18 06:49 12/08/18 07:54 Period Temp Pulse Resp BP Sys/Henry Pulse Ox Last 24 Hr 97.3 F-98.4 F 65-85 16-20 107-129/57-81 94-96 Intake and Output 12/07/18 12/08/18 12/08/18 21:59 05:59 13:59 Intake Total 200 150 Output Total 600 300 Balance -400 -150 Weight 85.729 kg Intake & Output: Intake & Output 12/07/18 12/08/18 12/08/18 21:59 05:59 13:59 Intake Total 200 150 Output Total 600 300 Balance -400 -150 Weight 85.729 kg Intake: IV 50 Rocephin 2 gm In Dextrose 5% in 50 Water 50 ml @ 100 mls/hr IV Q24H [facility] Rx#:[id number] Oral 200 100 Output: Urine Catheter Amount 200 Void Amount 400 300 Other: Meal Lunch Percent of Meal Consumed 75% Feeding Ability Assist with Tray Set Up Urine Appearance Clear Clear Urine Color Dark Yellow Bright Yellow Urine Odor Normal Normal Stool Size Moderate Stool Color Brown Stool Consistency Formed # Voids 1 # Bowel Movements 1 Exam: General: Alert, Awake, mild physical distress from pain Eyes/N/T: EOMI, Head/Neck: neck supple, CV: RRR, 2/6 SM Pulm: Clear b/l, no wheezing/rhonchi/rales Abd: soft, nontender, +BS x4 Back: Mild tenderness to palpation lumbar spine no overlying signs of infection Ext: no clubbing/cyanosis/edema Neuro: Alert, no focal deficits, moves all extremities, sensations intact Skin: warm/dry Medical - PN: Obj Da - Labs CBC & Chem 7: 12/08/18 04:00 12/08/18 04:00 Labs: Abnormal Lab Results 12/08/18 12/08/18 12/08/18 04:00 04:00 04:00 WBC RBC Hgb Hct Gran % Lymph % (Auto) Gran # Lymph # (Auto) Seg Neutrophils % Lymphocytes % ESR PT 28.9 H INR 2.8 H BUN 24 H Glucose Total Bilirubin GGT 104 H AST 43 H ALT Alkaline Phosphatase 161 H Lactate Dehydrogenase 447 H C-Reactive Protein 13.1 H Albumin 2.7 L Globulin Albumin/Globulin Ratio 0.8 L 12/08/18 12/07/18 12/07/18 04:00 12:37 12:37 WBC RBC 3.75 L Hgb 11.2 L Hct 34.2 L Gran % 79.6 H Lymph % (Auto) 9.2 L Gran # Lymph # (Auto) 0.8 L Seg Neutrophils % Lymphocytes % ESR 87 H PT INR BUN Glucose Total Bilirubin GGT AST ALT Alkaline Phosphatase Lactate Dehydrogenase C-Reactive Protein 15.0 H Albumin Globulin Albumin/Globulin Ratio 12/07/18 12/07/18 12/07/18 07:13 03:55 03:55 WBC RBC Hgb Hct Gran % Lymph % (Auto) Gran # Lymph # (Auto) Seg Neutrophils % 79 H Lymphocytes % 11 L ESR PT 23.9 H INR 2.2 H BUN 32 H Glucose Total Bilirubin GGT 115 H AST 54 H ALT 47 H Alkaline Phosphatase 181 H Lactate Dehydrogenase 516 H C-Reactive Protein 16.1 H Albumin Globulin Albumin/Globulin Ratio 0.9 L 12/07/18 12/06/18 12/06/18 03:55 20:57 20:57 WBC RBC 4.19 L Hgb 12.5 L Hct 38.1 L Gran % 84.6 H Lymph % (Auto) 7.2 L Gran # 9.3 H Lymph # (Auto) 0.8 L Seg Neutrophils % Lymphocytes % ESR PT 24.1 H INR 2.2 H BUN 36 H Glucose 110 H Total Bilirubin 1.1 H GGT 130 H AST 59 H ALT 48 H Alkaline Phosphatase 207 H Lactate Dehydrogenase 485 H C-Reactive Protein Albumin Globulin 4.0 H Albumin/Globulin Ratio 0.8 L 12/06/18 20:57 WBC 13.6 H RBC 4.42 L Hgb 13.3 L Hct 39.1 L Gran % Lymph % (Auto) Gran # Lymph # (Auto) Seg Neutrophils % 87 H Lymphocytes % 9 L ESR PT INR BUN Glucose Total Bilirubin GGT AST ALT Alkaline Phosphatase Lactate Dehydrogenase C-Reactive Protein Albumin Globulin Albumin/Globulin Ratio Meds: Medications Acetaminophen (Tylenol) 650 mg PO Q6HP PRN PRN Reason: PAIN/FEVER > 101 Hydrocodone Bitart/Acetaminophen ([place] 10/325mg) 1 tab PO Q8HP PRN PRN Reason: Pain Last Admin: 12/08/18 03:07 Dose: 1 tab Documented by: Albuterol Sulfate (Ventolin) 1 puff INH Q6HP PRN PRN Reason: Asthma Albuterol/Ipratropium (Duoneb) 3 ml NEB Q4HRT PRN PRN Reason: Bronchospasm Amiodarone HCl (Cordarone) 200 mg PO [facility] Last Admin: 12/07/18 21:33 Dose: 200 mg Documented by: Atorvastatin Calcium (Lipitor) 40 mg PO [facility] Last Admin: 12/07/18 21:33 Dose: 40 mg Documented by: Bisacodyl (Dulcolax) 10 mg [place] Q2-3DAYS PRN PRN Reason: Constipation Clopidogrel Bisulfate (Plavix) 75 mg PO DAILY [facility] Last Admin: 12/08/18 08:13 Dose: 75 mg Documented by: Docusate Sodium (Colace) 100 mg PO BID [facility] Last Admin: 12/08/18 08:13 Dose: 100 mg Documented by: Famotidine (Pepcid) 20 mg PO BID [facility] Last Admin: 12/08/18 08:13 Dose: 20 mg Documented by: Sodium Chloride (Sodium Chloride 0.9%) 1,000 mls @ 84 mls/hr IV .[id number] [facility] Last Admin: 12/08/18 01:29 Dose: 84 mls/hr Documented by: Vancomycin HCl 1,500 mg/ (Sodium Chloride) 500 mls @ 333.3 mls/hr IV Q24H [facility] Last Admin: 12/07/18 15:39 Dose: 333.3 mls/hr Documented by: Ceftriaxone Sodium 2 gm/ (Dextrose) 50 mls @ 100 mls/hr IV Q24H [facility]; Protocol Last Admin: 12/08/18 08:53 Dose: 100 mls/hr Documented by: Latanoprost (Xalatan Ophth Drops) 1 gtt OU [facility] Last Admin: 12/07/18 21:36 Dose: Not Given Documented by: Magnesium Hydroxide (Milk Of Magnesia) 30 ml PO DAILYP PRN PRN Reason: Constipation Magnesium Oxide (Magnesium Oxide) 400 mg PO BID [facility] Last Admin: 12/08/18 08:13 Dose: 400 mg Documented by: Melatonin (Melatonin 3mg Tablet) 3 mg PO HSP PRN PRN Reason: Insomnia Methocarbamol (Robaxin) 750 mg IV Q6HP PRN PRN Reason: Muscle Spasm Last Admin: 12/07/18 15:44 Dose: 750 mg Documented by: Metoprolol Tartrate (Lopressor) 6.25 mg PO DAILY [facility] Last Admin: 12/08/18 08:13 Dose: 6.25 mg Documented by: Morphine Sulfate (Morphine) 1 - 4 mg IV Q3HP PRN PRN Reason: PAIN LEVEL > 6 Last Admin: 12/08/18 08:12 Dose: 2 mg Documented by: Ondansetron HCl (Zofran) 4 mg IV Q6HP PRN PRN Reason: Nausea And Vomiting Pneumococcal Polyvalent Vaccine (Pneumovax 23) 0.5 ml IM .ONCE ONE Stop: 12/08/18 10:01 Promethazine HCl (Phenergan) 12.5 mg IV Q6HP PRN PRN Reason: Nausea And Vomiting Senna (Senokot) 1 tab PO BIDP PRN PRN Reason: Constipation Sodium Chloride (Saline Flush) 10 ml IV Q8 [facility] Last Admin: 12/08/18 04:43 Dose: Not Given Documented by: Timolol Maleate (Timoptic 0.5% Ophth Drops) 1 gtt OU DAILY [facility] Last Admin: 12/07/18 09:27 Dose: Not Given Documented by: Torsemide (Demadex) 5 mg PO DAILY [facility] Last Admin: 12/08/18 08:13 Dose: 5 mg Documented by: Vancomycin HCl (Vancomycin Per Pharmacy) 1 order IV UD [facility]; Protocol Warfarin Sodium (Coumadin Per Pharmacy) 1 order PO UD [facility] Medical - PN: A/P - Time Spent With Patient Total time spent is greater than 50% in coordination of care (as documented) at patient's floor/unit and/or counseling patient: (1) Bacteremia Status: Acute Current Visit: Yes - Narrative A/P Narrative: A: *Acute on chronic low back pain: 2/2 lumbar compression Fx's -CT spine w/contrast no evidence osteomyelitis *Bactermia (Streptococcus): 4/ bottles *Afib: On warfarin and metoprolol *h/o cardiac arrest (v. fib) in july: AICD/PPM and aortic valve replacement with aortic stenosis felt to be the culprit cause of cardiac arrest -at [facility] *HTN/HLD: *GERD P: -vanco/rocephin -[place] following -will need SILVANA given prosthetic aortic valve. 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
[2018-12-08] MEDS: TIMOLOL 0.5% OPHTH DROPS BOTTLE 5ML OU SCH (09:16)
[2018-12-08] MEDS ORDERED: PNEUMOCOCCAL 23-VAL P-SAC VAC 0.5 ML SYRINGE IM ONE (10:00)
[2018-12-08] MEDS: VANCOMYCIN 1,500 MG in 0.9 % SODIUM CHLORIDE 500 ML IV SCH (10:06)
[2018-12-08] MEDS: METHOCARBAMOL 1,000 MG/10 ML VIAL IV PRN (10:30)
[2018-12-08] MEDS ORDERED: WARFARIN 1 MG TABLET PO ONE (14:00)
== END 2018-12-08 11:50 | disposition short-term general hospital (02) | DRG 552 ==
LOC: INTOOBSV 19:29 → MEDSUR 19:29
PROVIDERS: ADMIT Internal Medicine; ATTEND Internal Medicine